=== PATIENT | male | born 1950 | race Caucasian/White ===

== ENCOUNTER 2020-10-22 06:22 | Day surgery (SDC) | payer MEDICARE, BC ==
[~2020-10-22 06:22] MED LIST: Dextrose 5%-0.45% NaCl 1,000 ML IV SCH; Sodium Chloride 0.9% 10 ML Syringe FLUSH PRN
[2020-10-22] MEDS ORDERED: Propofol 200 MG/20 ML SDV IV ONE (06:23)
--- NOTE | 2020-10-22 08:40 | OR ---
DATE: 10/22/2020 PROCEDURES: Total colonoscopy, NBI, cold snare polypectomy, and multiple pinch biopsies. INSTRUMENT USED: PCF-H190DL Olympus video colonoscope. PREMEDICATIONS: Provided by Anesthesiology Services. INDICATION: The patient with longstanding ulcerative colitis. Colonoscopic examination is done for detection of any polypoid lesions and removal, biopsies to be obtained for any evidence of dysplasia, endoscopic hemostasis therapy if needed. DESCRIPTION OF PROCEDURE: Initial rectal exam was unremarkable. Rigid anoscopy was normal. The colonoscope was passed with ease up to the ileocecal area. Photographs were taken of the cecum showing benign-appearing diminutive polyp, NBI views were obtained, photographs were taken, cold snare polypectomy was done, the tissue was retrieved and sent for histopathology. No bleeding was noted from any of the visualized areas at the commencement of the examination. The bowel preparation was found to be adequate, Notus scale 2 in all the regions, total score 6. No stricture. No vascular ectasia. No large isolated ulcerations seen. No evidence of diffuse inflammatory bowel disease in the form of friability, contact bleeding, or ulcerations. Probing the proximal sides of folds and flexures using adequate distention and clearing up the stool material, withdrawal of the scope was made. Four-quadrant biopsies were taken at 10 cm distance apart and the tissues were pooled into bags #1, cecum and ascending colon; #2, transverse colon; #3, descending colon; #4, rectosigmoid, and sent for histopathology. No bleeding was noted from any of the visualized areas at the completion of examination. IMPRESSION: Diminutive cecal polyp. The patient tolerated the procedure well. [facility] /[id number]
[2020-10-22 10:06] VITALS: BP 125/58; PULSE 71
== END 2020-10-22 10:10 | disposition home or self-care (01) ==
LOC: DL.ENDO 06:22
PROVIDERS: ATTEND Internal Medicine Gastroenterology
DX: D12.0 Benign neoplasm of cecum (principal); K51.90 Ulcerative colitis, unspecified, without complications; H91.90 Unspecified hearing loss, unspecified ear; Z98.890 Other specified postprocedural states; Z79.899 Other long term (current) drug therapy; Z87.891 Personal history of nicotine dependence
CPT/HCPCS: 00811; 45380; 45385; 88305; J2704; J7042

== ENCOUNTER 2021-10-25 10:26 | Emergency (ER) | payer MEDICARE, BC ==
[2021-10-25] MEDS ORDERED: Sodium Chloride 0.9% 10 ML Syringe FLUSH PRN (10:35)
[2021-10-25] MEDS ORDERED: Aspirin 81 MG Tab.Chew PO ONE (10:48)
[2021-10-25 11:14] LABS: ANION GAP 10.2 mEq/L (7-13); CHLORIDE,CL 105 mmol/L (98-107); SODIUM,NA 137 mmol/L (136-145)
[2021-10-25 11:24] VITALS: BP 131/76; PULSE 70
[2021-10-25 11:35] LABS: PTT,PARTIAL THROMBOPLSTIN TIME 25.8 SEC (22.0-34.0)
[2021-10-25 12:30] LABS: CORONAVIRUS COVID-19 NAA NEGATIVE (NEGATIVE); RESPIRATORY SYNCYTIAL VIR NAA NEGATIVE (NEGATIVE)
[2021-10-25] MEDS ORDERED: Sodium Chloride 0.9% 1,000 ML IV ONE (12:40)
[2021-10-25] MEDS ORDERED: Iopamidol 755 Mg/ML 100 ML Bottle IVPUSH ONE (12:40)
[2021-10-25] MEDS ORDERED: Apixaban 5 MG Tab PO ONE (13:44)
== END 2021-10-25 14:08 | disposition home or self-care (01) ==
LOC: DL.ED 10:26
DX: J90 Pleural effusion, not elsewhere classified (principal); K21.9 Gastro-esophageal reflux disease without esophagitis; N40.0 Benign prostatic hyperplasia without lower urinary tract symptoms; Z20.822 Contact with and (suspected) exposure to COVID-19
CPT/HCPCS: 0241U; 36415; 71045; 71260; 80053; 83690; 84484; 85025; 85379; 85610; 85730; 93005; 93010; 99285; A9270; J7030; Q9967